=== PATIENT | male | born 1940 | race Caucasian/White ===

== ENCOUNTER 2018-12-02 13:42 | Emergency (ER) | payer OTHER ==
[~2018-12-02] VITALS: Ht 177.8 cm; Wt 95.3 kg
[2018-12-02 13:42] VITALS: BP 148/74
[~2018-12-02 13:42] MED LIST: ADVAIR HFA 230M12 GM INH; ASPIRIN EC81 M1; ASPIRIN325 PO; NIACIN 500 MG500 M1 PO; SIMVASTATIN40 MG PO; TOPROL XL25 MG; ZOCOR5 MG
== END 2018-12-02 15:04 | disposition home or self-care (01) ==
LOC: ER 13:42
DX: S00.81XA Abrasion of other part of head, initial encounter (principal); S50.312A Abrasion of left elbow, initial encounter; S50.812A Abrasion of left forearm, initial encounter; F17.210 Nicotine dependence, cigarettes, uncomplicated; I10 Essential (primary) hypertension; J44.9 Chronic obstructive pulmonary disease, unspecified; E78.5 Hyperlipidemia, unspecified; Z88.0 Allergy status to penicillin; Z86.73 Personal history of transient ischemic attack (TIA), and cerebral infarction without residual deficits; V89.2XXA Person injured in unspecified motor-vehicle accident, traffic, initial encounter; Y92.89 Other specified places as the place of occurrence of the external cause; Y93.89 Activity, other specified; Y99.8 Other external cause status